=== PATIENT | male | born 1975 | race Caucasian/White ===

== ENCOUNTER → 2017-03-19 | Outpatient (CLI) | payer OTHER | END | disposition home or self-care (01) | LOC: CARD 10:44 | DX: I10 Essential (primary) hypertension (principal) ==

== ENCOUNTER → 2017-10-02 | Day surgery (SDC) | payer OTHER ==
[~2017-10-02] VITALS: Ht 177.8 cm; Wt 163.3 kg
[~2017-10-02] MED LIST: LIPITOR10 MG PO; PRINIVIL10 MG PO; ZYLOPRIM100 MG PO
--- NOTE | ~2017-10-02 | O ---
[place], [place] OPERATIVE NOTE NAME: SKY STEIN UNIT #: [id number] ROOM: DOCTOR: EARLE DELACRUZ MD BIRTHDATE: [birth year] DOS: PROCEDURE: Colonoscopy with hemorrhoidal band ligation. INDICATION FOR PROCEDURE: Rectal bleeding and rectal pain. An informed consent was obtained from the patient after indication of procedure, the alternatives and potential complications were explained to him. PROCEDURE MEDICATIONS: Sedation was administered by Anesthesiology Department. SCOPE USED: We started with the adult colonoscopy, Olympus variable stiffness GIF-180, then we used Olympus upper endoscope GIF-180. Depth of insertion was to the cecum, which was identified by the usual landmarks, appendiceal orifice, ileocecal valve and triangular fold. FINDINGS: After adequate sedation, the patient was placed in left lateral decubitus position. Rectal examination showed normal sphincter tone. The scope was introduced into the rectum and then advanced to the cecum with no difficulty. The prep was adequate. The colon mucosa appeared normal with no evidence of polyps or ulcerations. The patient did have evidence of mild left-sided diverticulosis. Retroflexed views in the rectum showed grade 3 internal hemorrhoids. The scope was then withdrawn and then we switched to the Olympus upper endoscope and we attached a multiband ligator, [employer] type. The scope was reintroduced in the rectum and on retroflex views we deployed 6 bands, which were done successfully with no immediate complications. The rectum was then decompressed and the scope was withdrawn. The patient tolerated the procedure well. IMPRESSION: 1. Mild left-sided diverticular disease. 2. Large internal hemorrhoids, band ligation was performed x 6. PLAN: We will monitor the patient's symptoms. Office followup will be scheduled in 2-3 weeks and repeat screening colonoscopy is recommended in 10 years. [place], [place] OPERATIVE NOTE NAME: SKY STEIN UNIT #: [id number] ROOM: DOCTOR: EARLE DELACRUZ MD BIRTHDATE: [birth year] EARLE DELACRUZ MD CM:OPRECORD:OPERATIVE NOTE [id number] EARLE DELACRUZ MD 10/02/17 0916 interface
[2017-10-02 07:30] VITALS: BP 135/69
[2017-10-02 08:50] VITALS: BP 136/90
[2017-10-02 09:05] VITALS: BP 157/86
[2017-10-02 09:16] VITALS: BP 146/74
== END | disposition home or self-care (01) ==
LOC: SDC 09-28 08:00
DX: K64.8 Other hemorrhoids (principal); K57.30 Diverticulosis of large intestine without perforation or abscess without bleeding; I10 Essential (primary) hypertension; K21.9 Gastro-esophageal reflux disease without esophagitis; F17.200 Nicotine dependence, unspecified, uncomplicated; Z79.899 Other long term (current) drug therapy; E66.01 Morbid (severe) obesity due to excess calories; E78.5 Hyperlipidemia, unspecified; Z68.43 Body mass index [BMI] 50.0-59.9, adult

== ENCOUNTER → 2022-01-31 | Outpatient (CLI) | payer OTHER | END | disposition home or self-care (01) | LOC: RAD 07:11 | PROVIDERS: ATTEND Nurse Practitioner Family | DX: K21.9 Gastro-esophageal reflux disease without esophagitis (principal); K44.9 Diaphragmatic hernia without obstruction or gangrene; I10 Essential (primary) hypertension ==

== ENCOUNTER → 2022-10-31 | Outpatient (CLI) | payer OTHER ==
[2022-10-31 12:35] LABS: URIC ACID 4.3 mg/dL (3.1-9.2)
== END | disposition home or self-care (01) ==
LOC: LAB 11:51
PROVIDERS: ATTEND Nurse Practitioner Family
DX: E78.2 Mixed hyperlipidemia (principal); M10.9 Gout, unspecified

== ENCOUNTER 2024-05-30 01:04 | Emergency (ER) | payer OTHER ==
[~2024-05-30] VITALS: Ht 177.8 cm; Wt 107.5 kg
[2024-05-30] MEDS ORDERED: PRAZOSIN HCL2 MG PO (01:25)
[2024-05-30] MEDS ORDERED: ABILIFY10 MG PO (01:25)
[2024-05-30] MEDS ORDERED: PROTONIX40 MG PO (01:26)
[2024-05-30] MEDS ORDERED: FLUOXETINE40 MG PO (01:26)
[2024-05-30 01:27] LABS: BASO % 0.3 % (0.0-1.0); EOS # 0.3 10*3/uL (0.0-0.4); EOS % 2.7 % (1.0-4.0); HEMATOCRIT 42.2 % (42.0-52.0); LYMPH # 3.2 10*3/uL (1.3-4.4); LYMPH % 31.3 % (27.0-41.0); MEAN CELL VOLUME 98.1 fl (80.0-94.0); MEAN CORPUSCULAR HGB CONC 33.6 g/dl (33.0-37.0); MEAN PLATELET VOLUME 8.4 fl (9.6-12.3); MONO # 0.5 10*3/uL (0.1-1.0); MONO % 4.8 % (3.0-9.0); NEUT # 6.2 10*3/uL (2.3-7.9); NEUT % 60.6 % (47.0-73.0); PLATELET COUNT AUTOMATED 295 10*3/uL (130-400); RED CELL DISTRI WIDTH 12.3 % (0-14.5); WHITE BLOOD COUNT 10.2 10*3/uL (4.8-10.8)
[2024-05-30 01:55] LABS: ALKALINE PHOSPHATASE 122 U/L (46-116); BUN 17 mg/dl (9-23); CHLORIDE 107 mmol/L (98-107); POTASSIUM 3.7 mmol/L (3.4-5.1); SGPT/ALT 59 U/L (5-49); TOTAL PROTEIN 6.7 gm/dL (6.0-8.0)
[2024-05-30] MEDS ORDERED: Ondansetron4 MG PO (04:03)
[2024-05-30] MEDS ORDERED: Ondansetron Hydrochloride 4 MG/2 ML VIAL IV ONE (04:05)
== END 2024-05-30 04:15 | disposition home or self-care (01) ==
LOC: ED 01:04
PROVIDERS: Internal Medicine
DX: K52.9 Noninfective gastroenteritis and colitis, unspecified (principal); Z20.822 Contact with and (suspected) exposure to COVID-19; R79.89 Other specified abnormal findings of blood chemistry; R11.2 Nausea with vomiting, unspecified; R07.89 Other chest pain; M54.9 Dorsalgia, unspecified; I10 Essential (primary) hypertension; E78.00 Pure hypercholesterolemia, unspecified; K21.9 Gastro-esophageal reflux disease without esophagitis; Z98.890 Other specified postprocedural states

== ENCOUNTER → 2024-06-30 | Outpatient (CLI) | payer OTHER ==
[~2024-06-30] MED LIST changes: +ABILIFY10 MG PO; +FLUOXETINE40 MG PO; +Ondansetron4 MG PO; +PRAZOSIN HCL2 MG PO; +PROTONIX40 MG PO
== END | disposition home or self-care (01) ==
LOC: US 07:16
PROVIDERS: ATTEND Nurse Practitioner Family
DX: R10.11 Right upper quadrant pain (principal); Z98.890 Other specified postprocedural states